=== PATIENT | female | born 1975 | race Caucasian/White ===

== ENCOUNTER 2018-06-04 13:26 | Emergency (ER) | payer OTHER ==
[~2018-06-04] VITALS: Ht 162.6 cm; Wt 54.4 kg
[~2018-06-04 13:26] MED LIST: AMLODIPINE BESYL5 MG; CYMBALTA30 MG; LISINOPRIL-HCT1 EAC2; SPRINTEC1 EACH
[2018-06-04 13:38] VITALS: BP 199/130
[2018-06-04] MEDS ORDERED: ROBAXIN500 MG PO (13:53)
== END 2018-06-04 14:00 | disposition home or self-care (01) ==
LOC: M.ERS 13:26
DX: S16.1XXA Strain of muscle, fascia and tendon at neck level, initial encounter (principal); S29.012A Strain of muscle and tendon of back wall of thorax, initial encounter; V49.00XA Driver injured in collision with unspecified motor vehicles in nontraffic accident, initial encounter; Y93.89 Activity, other specified; Y92.89 Other specified places as the place of occurrence of the external cause; Y99.8 Other external cause status; I10 Essential (primary) hypertension; F41.9 Anxiety disorder, unspecified; M19.90 Unspecified osteoarthritis, unspecified site